=== PATIENT | male | born 1985 | race Caucasian/White ===

== ENCOUNTER 2019-03-29 18:06 | Emergency (ER) | payer OTHER ==
--- NOTE | 2019-03-29 18:15 | EDPHY ---
H & P Stated Complaint: erratic behavior - Personal History Current Tetanus/Diphtheria Vaccine: Unsure Current Tetanus Diphtheria and Acellular Pertussis (TDAP): Unsure - Medical/Surgical History Hx Asthma: No Hx Chronic Respiratory Disease: No Hx Diabetes: No Hx Cardiac Disease: No Hx Renal Disease: No Hx Cirrhosis: No Hx Alcoholism: No Hx HIV/AIDS: No Hx Splenectomy or Spleen Trauma: No Other PMH: Herniated disc, PTSD, Bipolar - Social History Smoking Status: Never smoked Time Seen by Provider: 03/29/19 18:09 HPI/ROS: CHIEF COMPLAINT: Erratic behavior HISTORY OF PRESENT ILLNESS: 33-year-old male history of PTSD and methamphetamine abuse based on review of old medical records. Initial HPI not obtainable 1st person for due to somnolence. Per EMS and police, they report that the patient was acting erratically, was throwing fruit at a wall. All he is familiar to police and there are reports of violent outbursts. He was given IV Versed by EMS and placed in restraints. There are no reports of visible trauma. He was placed on M1 by police prior to arrival PRIMARY CARE PROVIDER: REVIEW OF SYSTEMS: 10 systems reviewed and negative with the exception of the elements mentioned in the history of present illness PAST MEDICAL & SURGICAL HISTORY: Unable to assessed 1st person however based on review of old medical records history of methamphetamine abuse and PTSD SOCIAL HISTORY: Unable to assess due to somnolent PHYSICAL EXAM (Prior to examination, patient consented to physical exam, hands were washed and my usual and customary physical exam procedures followed) 1) GENERAL: somnolent, foul smelling Appears to be in no acute distress. 2) HEAD: Normocephalic, atraumatic 3) HEENT: Pupils equal, round, reactive to light bilaterally. Sclera anicteric. No raccoon eyes. No Flood sign. Nasopharynx, oropharynx, clear, no lesions. MoistDry mucous membranes. Ears bilaterally with normal tympanic membranes. No rhinorrhea. No otorrhea. No hemotympanum 4) NECK: Full range of motion, no meningeal signs. 5) LUNGS: Clear auscultation bilaterally, no wheezes, no rhonchi, no retractions. 6) HEART: Regular rate and rhythm, no murmur, no heave, no gallop. 7) ABDOMEN: No guarding, no rebound, no focal tenderness, negative McBurney's, negative Gomez's, negative Rovsing's, negative peritoneal sign, 8) MUSCULOSKELETAL: Moving all extremities, no focal areas of tenderness, no obvious trauma. No peripheral edema or discoloration. 9) BACK: No obvious trauma, no visual or palpable abnormality. 10) SKIN: No rash, no petechiae. 11) Psychiatric: Somnolent DIFFERENTIAL DIAGNOSIS: In no particular orderincluding but not limited to hypoglycemia, infectious process, electrolyte abnormality, head injury and intoxicants. (Nasrin Smith) Constitutional: Initial Vital Signs Temperature (C) 36.7 C 03/29/19 18:10 Heart Rate 67 03/29/19 18:10 Respiratory Rate 18 03/29/19 18:10 Blood Pressure 113/63 03/29/19 18:10 O2 Sat (%) 97 03/29/19 18:10 O2 Delivery Mode Room Air Allergies/Adverse Reactions: cefaclor [From [facility]] Allergy (Verified 12/23/09 18:43) Penicillins Allergy (Verified 03/05/19 11:42) Home Medications: Medication Instructions Recorded oxyCODONE/APAP 5/325 [Percocet 1 - 2 tab PO .Q 4 - 6 #20 tab 12/23/09 5/325] oxyCODONE/APAP 5/325 [Percocet 1 - 2 tab PO .Q 4 - 6 HRS #11 tab 12/23/09 5/325] Advil 03/05/19 Risperdal 03/29/19 Zoloft 100mg (*) 03/29/19 Medical Decision Making ED Course/Re-evaluation: Re-evaluation with serial exams. Care turned over to Dr. Huang Hunt at midnight. Patient remains sleeping. HPI remained limited secondary to somnolence. (Nasrin Smith) Other Provider: Signed out to Dr. Hunt; on M1, positive for amphetamine. (Tye Gorman) Care assumed from Dr. Gorman pending mental health evaluation. 0530 patient seen by mental health care administrative tech, Michael, patient is awake and alert and cooperative. He is appropriate. He is rosario for safety. Does not be told criteria. Plan will be for [facility], return for any concerns. I vacated the mental health hold. (Devante Hunt) - Data Points Laboratory Results: Laboratory Results 03/29/19 18:16 03/29/19 18:16 Departure - Departure Disposition: Home, Routine, Self-Care Clinical Impression: PTSD (post-traumatic stress disorder), Polysubstance abuse Condition: Good Instructions: Post Traumatic Stress Disorder (ED) Additional Instructions: [facility].
[2019-03-29 18:23] LABS: PLATELET COUNT 196 10^3/uL (150-400)
[2019-03-29 18:39] LABS: CREATINE KINASE 273 IU/L (0-224)
--- NOTE | 2019-03-29 23:11 | ASMTLCPROG ---
Notes Note: Notes: Spoke with pt's father Sreekanth who reported he called in the welfare check on pt this evening. Sreekanth Phone number [phone]. This engineering technical writer attempted to conduct the evaluation on pt but pt was unwilling to participate. This engineering technical writer obtained collateral information from the Sreekanth and informed him, pt will be evaluated in the AM. Date Signed: 03/29/2019 11:09 PM Electronically Signed By:Leighann Camejo
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
--- NOTE | 2019-03-30 05:53 | ASMTTCLDSP ---
TLC Discharge Disposition Disposition: Answers: Discharge If Answers: Yes DISCHARGED: Patient/family given suicide hotline info & SAMHSA brochure? Disposition Notes: Notes: Pt stated commitment or ability to keep self safe, denied thoughts of self harm or harm to others. Pt expressed a desire to f/u with [facility] ([place], [place]). Pt was given local hotline information and SAMHSA brochure After an Attempt and [facility] ED made transportation arrangements for pt to return to his apartment. Discharge Concerns/Recommendations: Notes: In consultation with [facility] ED physician, Huang Hunt, Dr. Hunt concurred that pt does not appear to meet 27-65 criteria requiring psychiatric hospitalization as pt does not appear to be an imminent risk of harm to self/others/gravely disabled due to a mental illness condition. Dr. Hunt provided verbal order read back vacating M1 hold at 0530 hrs. Was patient given the Answers: Not applicable Inpatient Behavioral Health Prohibited Belongings List while in the ED? Psychiatrist vacating M1 Huang Hunt MD Hold: Type of Hold: Answers: M1/72-hour Hold Hold initiated by: Answers: Police Date Signed: 03/30/2019 05:52 AM Electronically Signed By:Michael Chery
[2019-03-30 05:56] VITALS: BP 118/71
== END 2019-03-30 05:49 | disposition home or self-care (01) ==
LOC: EDUNIT#
PROC: GZ11ZZZ Psychological Tests, Personality and Behavioral (ICD-10-PCS; principal; 2019-03-29)
DX: F43.10 Post-traumatic stress disorder, unspecified (principal); F19.10 Other psychoactive substance abuse, uncomplicated
CPT/HCPCS: 80305; G0480

== ENCOUNTER 2019-04-27 20:35 | Emergency (ER) | payer OTHER | END 2019-04-28 09:15 | disposition home or self-care (01) ==

== ENCOUNTER 2019-04-28 19:16 | Emergency (ER) | payer OTHER | END 2019-04-28 23:33 ==